=== PATIENT | female | born 1970 | race Caucasian/White ===

== ENCOUNTER 2021-04-02 20:39 | Emergency (ER) | payer OTHER, SELFPAY ==
[2021-04-02] VITALS (14 sets, daily range): BP systolic 115–140; BP diastolic 64–87; PULSE 75–96; RESP 12–23; TEMP 36.4; O2SAT 96–100
--- NOTE | 2021-04-02 20:52 | ECG_ITS ---
Measurements Intervals [place] Rate: 88 P: 61 VT: 173 QRS: 54 QRSD: 75 T: 65 QT: 367 QTc: 446 Interpretive Statements SINUS RHYTHM INCOMPLETE RIGHT BUNDLE BRANCH BLOCK LOW QRS VOLTAGE IN PRECORDIAL LEADS BORDERLINE ECG Electronically Signed On 04-03-2021 6:31:36 CDT by Neville Elder D.O.
--- NOTE | 2021-04-02 21:05 | ED.GENADULT ---
HPI - General Adult General Chief complaint: Syncope Stated complaint: numb/tingling in hand, possible syncopal episode Time Seen by Provider: 04/02/21 20:43 History of Present Illness HPI narrative: Patient is a 50-year-old female who presents ER with near syncope. Patient started having abdominal discomfort and felt like she needed to use the restroom. She went to the bathroom began to get clammy and lightheaded. She had to lay herself down on the ground. She was able to get herself up and open the bathroom stall door. She is unsure if she lost consciousness. No history of cardiac disease. She is currently in town for a wedding. She just flew in from [place]. She has no chest pain or chest pressure. No difficulty breathing or hemoptysis. No history of blood clots. Related Data Allergies Allergy/AdvReac Type Severity Reaction Status Date / Time peanut Allergy Unknown Verified 04/02/21 20:58 diphenhydramine AdvReac Unknown Verified 04/02/21 20:58 [From [facility]] Review of Systems Review of Systems: All systems reviewed & are unremarkable except as noted in HPI and below Constitutional: Constitutional: Denies chills, Denies fever(s) and Denies weakness ENT: Denies nasal congestion and Denies sore throat Cardiovascular: Cardiovascular: Denies chest pain, Denies rapid heart rate and Denies radiating jaw, neck or arm pain Respiratory: Respiratory: Denies cough and Denies dyspnea Gastrointestinal: Gastrointestinal: Reports abdominal pain, Reports bloating, Denies diarrhea, Reports nausea and Denies vomiting Genitourinary: Genitourinary: Denies dysuria and Denies flank pain Neurologic: Denies syncope (Near syncope), Denies headache(s), Denies focal weakness and Denies numbness Comments: Tingling in figers and toes PMFSH Past Medical History Medical History (Updated 04/03/21 @ 00:16 by Reggie Wu MD) Anxiety Surgical History Surgical History (Updated 04/02/21 @ 21:05 by Reggie Wu MD) No history of previous surgery Social History Social History (Updated 04/02/21 @ 21:05 by Reggie Wu MD) Smoking status: Never smoker Exam Narrative: GENERAL: Anxious-appearing, well-nourished, and in no acute distress. HEAD: Normocephalic, atraumatic. EYES: PERRL and EOMI. ENT: Mucous membranes moist. CHEST: Clear to auscultation. No respiratory distress. HEART: Regular rate and rhythm. Normal peripheral pulses. ABDOMEN: Soft, nontender, nondistended. EXTREMITIES: Normal range of motion. No edema. SKIN: Warm, dry, no rash. NEURO: No focal deficits. Cranial nerves II through XII intact. No slurred speech. Ambulates with steady gait and normal strength. Alert and oriented x3. PSYCH: Patient having anxiety attack upon arrival causing tingling in her hands and feet. Course Course Emergency Course: Feels better after IV fluids. Patient also feels better after having walked to the bathroom and having had a loose bowel movement. Discharge home. Symptoms felt to be related to vasovagal episode. Patient also was having panic attack upon arrival but has calmed down. Vital Signs Vital signs: Vital Signs Temperature 97.5 F L 04/02/21 20:42 Pulse Rate 89 04/02/21 20:42 Respiratory Rate 23 H 04/02/21 20:42 Blood Pressure 124/64 04/02/21 20:42 Pulse Oximetry 100 04/02/21 20:42 Temperature 97.5 F L 04/02/21 20:42 Pulse Rate 96 04/02/21 23:39 Respiratory Rate 16 04/02/21 23:39 Blood Pressure 126/82 04/02/21 23:39 Pulse Oximetry 100 04/02/21 23:39 Medical Decision Making Vital Signs Vital Signs: Vital Signs Temperature 97.5 F L 04/02/21 20:42 Pulse Rate 89 04/02/21 20:42 Respiratory Rate 23 H 04/02/21 20:42 Blood Pressure 124/64 04/02/21 20:42 Pulse Oximetry 100 04/02/21 20:42 Temperature 97.5 F L 04/02/21 20:42 Pulse Rate 96 04/02/21 23:39 Respiratory Rate 16 04/02/21 23:39 Blood Pressure 126/82 04/02/21 23:39 Pu
[2021-04-02 21:20] LABS: Basophils Absolute Auto 0.1 K/mm3 (0.0-0.1); Basophils Percent Auto 0.7 % (0.2-1.2); Eosinophils Percent Auto 0.1 % (0-4.4); Hematocrit 42.7 % (37.0-47.0); Immature Granulocyte Absolute 0.02 K/mm3 (0.00-0.031); Immature Granulocyte Percent A 0.2 % (0-0.5); Lymphocytes Absolute Auto 2.28 K/mm3 (0.9-3.2); Lymphocytes Percent Auto 23.7 % (18.3-44.2); Mean Corpuscular HGB Conc 35.1 g/dl (32-36); Mean Corpuscular Hemoglobin 32.6 pg (26-34); Mean Corpuscular Volume 92.8 fl (80-100); Mean Platelet Volume 9.1 fl (7.4-10.4); Monocytes Absolute Auto 0.4 K/mm3 (0.1-0.6); Monocytes Percent Auto 4.5 % (2.6-8.5); Neutrophils Absolute Auto 6.8 K/mm3 (1.3-6.7); Neutrophils Percent Auto 70.8 % (45.5-73.1); Platelet Count Result 416 k/mm3 (150-375); Red Cell Distribution Width 11.7 % (11.5-14.5); White Blood Count 9.6 K/mm3 (4.5-10.0)
[2021-04-02 21:30] LABS: Ethanol < 10 mg/dL (<10)
[2021-04-02 21:30] LABS: Alanine Aminotransferase 19 U/L (4-35); Albumin Level 4.9 g/dL (3.5-5.1); Alkaline Phosphatase 114 U/L (38-126); Anion Gap 12 mmol/L (8-16); Aspartate Amino Transferase 30 U/L (14-36); Bilirubin,Total 0.6 mg/dL (0.2-1.3); Blood Urea Nitrogen 14 mg/dL (7-17); Calcium 9.9 mg/dL (8.4-10.2); Carbon Dioxide 22 mmol/L (22-30); Chloride 102 mmol/L (98-107); Estimated CRCL calculation 67 ml/min; Estimated Glomerular Filt Rate > 60; Glucose 177 mg/dL (65-110); Lipase 177 U/L (23-300); Sodium 136 mmol/L (137-145)
[2021-04-02] MEDS: SODIUM CHLORIDE 0.9% IV 1,000 ML 999 ML IV CONT (22:11)
--- NOTE | 2021-04-02 22:17 | PC.NURSE ---
Pt refusing straight catheter at this time. Currently on bedpan due to unstable gait at this time. Pt aware of need for urine specimen.
[2021-04-02 23:31] LABS: Add Urine Microscopic? YES; Appearance Urine Clear (Clear); Bacteria Urine Trace /hpf; Bilirubin Urine Negative (Negative); Blood Urine Negative (Negative); Color Urine Amber (Yellow); Glucose Urine UA Negative (Negative); Ketones Urine Trace mg/dL (Negative); Leukocyte Esterase Ur Negative LEU/UL (Negative); Mucus Urine Few /lpf; Nitrate Urine Negative (Negative); Protein Urine Negative (Negative); Specific Grav Ur 1.024 (1.001-1.035); Squamous Epithelial Cell Urine Few /hpf (Few)
[2021-04-03 00:27] VITALS: BP 124/88; PULSE 96; RESP 15; O2SAT 100
== END 2021-04-03 00:30 | disposition home or self-care (01) ==
PROVIDERS: Emergency Provider Emergency Medicine
DX: R55 Syncope and collapse (principal); I45.10 Unspecified right bundle-branch block; R94.31 Abnormal electrocardiogram [ECG] [EKG]
CPT/HCPCS: 36415; 80053; 80307; 81001; 83690; 85025; 93005; 96360; 99283; J7030